=== PATIENT | female | born 1980 | race American Indian/Alaskan Native ===

== ENCOUNTER 2018-12-31 21:54 | Emergency (ER) | payer SELFPAY ==
[2018-12-31 22:05] VITALS: BP 130/78
== END 2019-01-01 07:55 | disposition left against medical advice (07) ==
LOC: ED 21:54
DX: R07.9 Chest pain, unspecified (principal); Z53.21 Procedure and treatment not carried out due to patient leaving prior to being seen by health care provider
CPT/HCPCS: 93005; 93010